=== PATIENT | male | born 1935 | race Caucasian/White ===

== ENCOUNTER 2016-12-31 00:04 | Emergency (ER) | payer MEDICARE, BC ==
--- NOTE | 2016-12-31 00:21 | EDM.PDOC ---
ED HISTORY OF PRESENT ILLNESS - General Chief Complaint: Respiratory Problem Stated Complaint: SOB/CONGESTION Time Seen by Provider: 12/31/16 00:20 Source of Information: Reports: Patient History Limitations: Reports: No limitations - History of Present Illness INITIAL COMMENTS - FREE TEXT/NARRATIVE: 81-year-old male presents the ED after waking from sleep after only being in bed for about an hour. He felt acutely short of breath particularly not able to breathe well through his nose and a sense of suffocation. He did use his albuterol puffer at home and felt a little improved. He lives 50 miles away and he was scared enough that he decided he would drive himself in as he lives alone. He did see his care provider couple of days ago. States he was recently treated with a Z-Jamie and did cough up a good deal of yellow sputum without blood. He has COPD/asthma. He's been never smoker but was around a lot of cigarette smoke over the years. No chest pain. Apparently he is on Coumadin because he has an area of his heart that is not pumping well. I could get from history whether or not he is in atrial fibrillation. We'll try looking to old notes. He denies fever or chills. Appetite has been good. No diarrhea or vomiting. [place]he has been wearing a mask when outside in the cool air making him feel very short of breath as of recent. Symptom Onset Date: 12/30/16 Symptom Onset Time: 23:15 Timing/Duration: Reports: Minutes:, Sudden onset (awoke from sleep after only being retired for about an hour acutely short of breath.) Severity: severe Location, General: Reports: chest (cannot get a full deep breath.) Quality: Reports: Ache, Other (felt he could not breathe at all through his nose.) Improves with: Reports: Medication (he is at his inhaler did help him breathe a little bit better.) Worsens with: Reports: Other (exposure to cool night air.), Movement Context, General: Reports: Other (awoke from sleep with current symptoms.). Denies: Activity, Exercise, Lifting, Sick contact, Trauma Associated Symptoms (General): Reports: cough w sputum (a week ago he coughed up a good deal of yelling sputum. Did finish a course of azithromycin.), shortness of breath. 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: Breathing treatments (albuterol metered-dose inhaler) - Related Data Allergies/ADRs: Allergies Allergy/AdvReac Type Severity Reaction Status Date / Time No Known Allergies Allergy Verified 12/31/16 00:18 Home Meds: Home Meds Albuterol [Proventil Neb Soln] 2.5 mg NEB Q4HRRT PRN #40 neb 12/31/16 [Rx] Albuterol [Proventil Neb Soln] 2.5 mg NEB Q4HRRT PRN #5 neb 12/31/16 [Rx] Fluticasone/Salmeterol [Advair Diskus 500-50] 1 inh INH DAILY 12/31/16 [History] Metoprolol Succinate [Toprol XL] 100 mg PO DAILY 12/31/16 [History] Past Medical History Cardiovascular History: Reports: Afib Respiratory History: Reports: Asthma, COPD Social & Family History - Tobacco Use Smoking Status *Q: Never Smoker (buttocks posterior good deal of cigarette smoke over his lifetime.) - Alcohol Use Alcohol Use History: No - Living Situation & Occupation Living situation: Reports: 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 Denies: fever, chills, malaise, decreased appetite, weight loss HEENT: Reports: Other (pain posterior to his right ear for the last week but its gone as of tonight. No rashes were appreciated. As a sharp stabbing pain is suggestive of a neurogenic source.) Respiratory: Reports: shortness of breath (usually just on exertion), wheezing, cough (occasional cough late last week when he was bringing up a little bit yellowish sputum.). Denies: pleuritic chest pain (on exertion or exposure to cool air.), hemoptysis Cardiovascular: Reports: Dyspnea on exertion (chronically). Denies: Chest pain , Blood pressure problem, Claudication, Edema, Lightheadedness, Orthopnea, Palpitations Endocrine: Reports: no symptoms GI/Abdominal: Reports: Constipation : Reports: frequency (nocturia usually 3 or 4 times nightly.), other Musculoskeletal: Reports: neck pain, shoulder pain, back pain Skin: Reports: no symptoms Neurological: Reports: no symptoms Psychiatric: Reports: Anxiety (admits he was quite anxious when he awoke from sleep with a feeling of suffocation and not able to get a good deep breath. This is never happened to him before.) Hematologic/Lymphatic: Reports: no symptoms Immunologic: Reports: no symptoms ED EXAM, GENERAL - Physical Exam Exam: See Below Exam Limited By: No limitations General Appearance: alert, WD/WN, anxious (mildly anxious.), mild distress Eye Exam: bilateral eye: normal inspection Ears: normal TMs Nose: other (this in bilateral middle and superior nasal turbinate swelling. There is a mild polyp on the right side. There is still plenty of room for air flow.) Throat/Mouth: Normal inspection, Normal lips, Normal oropharynx Head: atraumatic, normocephalic Neck: normal inspection, supple, non-tender, full range of motion. No: carotid bruit, lymphadenopathy (L), lymphadenopathy (R), thyromegaly Respiratory/Chest: no respiratory distress, lungs clear, normal breath sounds, no accessory muscle use, chest non-tender, other (O2 sats are 96-98% on.). No: rales, rhonchi, wheezing Cardiovascular: regular rate, rhythm (sinus bradycardia at 52 per minute), no JVD, no murmur, no rub, bradycardia. No: normal peripheral pulses Peripheral Pulses: 1+: posterior tibial (L), posterior tibial (R), dorsalis pedis (L), dorsalis pedis (R) GI/Abdominal: distended (his upper half of his abdomen is distended and tympanitic percussion compatible with aerophagia. No tenderness organomegaly appreciated.). No: no organomegaly, no distention, no abnormal bruit, no mass (Male) Exam: No hernia Back Exam: normal inspection, full range of motion. No: CVA tenderness (L), CVA tenderness (R) Extremities: normal inspection, normal range of motion, normal capillary refill , pedal edema (1+ pitting edema lower extremities.) Neurological: alert, oriented, CN II-XII intact, normal cognition, normal gait Psychiatric: normal affect, normal mood Skin Exam: Warm, Dry, Intact, Normal color, No rash EKG INTERPRETATION EKG Date: 01/07/17 Time: 00:45 Rhythm: other (sinus bradycardia at 50 per minute) Rate (beats/min): 50 [place]: normal P-wave: present QRS: other (decreased voltage in the limb leads) ST-T: normal QT: prolonged (mildly prolonged.) Course - Vital Signs Last Recorded V/S: Last Vital Signs Temp 35.8 C 12/31/16 00:14 Pulse 58 L 12/31/16 00:14 Resp 18 12/31/16 00:14 BP 144/83 H 12/31/16 00:14 Pulse Ox 96 12/31/16 00:14 - Orders/Labs/Meds Orders: Active Orders 24 hr Category Date Time Status EKG Documentation Completion [RC] STAT Care 12/31/16 00:34 Active Peripheral IV Care [RC] . DIRECTED Care 12/31/16 00:34 Active RT Aerosol Therapy [RC] ASDIRECTED Care 12/31/16 01:56 Active Chest 1V Frontal [CR] Stat Exams 12/31/16 00:33 Taken Sodium Chloride 0.9% [Saline Flush] Med 12/31/16 00:34 Active 10 ml FLUSH ASDIRECTED PRN Peripheral IV Insertion Adult [OM.PC] Stat Oth 12/31/16 00:34 Ordered Medication Orders Sodium Chloride (Saline Flush) 10 ml FLUSH ASDIRECTED PRN PRN Reason: Keep Vein Open Last Admin: 12/31/16 00:52 Dose: 10 ml Labs: Laboratory Tests 12/31/16 12/31/16 12/31/16 Range/Units 00:42 00:42 00:42 WBC 10.23 H (4.23-9.07) K/mm3 RBC 4.93 (4.63-6.08) M/mm3 Hgb 13.9 (13.7-17.5) gm/L Hct 41.0 (40.1-51.0) % MCV 83.2 (79.0-92.2) fl MCH 28.2 (25.7-32.2) pg MCHC 33.9 (32.2-35.5) g/dl RDW Std Deviation 39.8 (35.1-43.9) fL Plt Count 222 (163-337) K/mm3 MPV 9.3 L (9.4-12.3) fl Neutrophils % (Manual) 55 (40-60) % Band Neutrophils % 0 (0-10) % Lymphocytes % (Manual) 33 (20-40) % Atypical Lymphs % 0 % Monocytes % (Manual) 3 (2-10) % Eosinophils % (Manual) 7 (0.8-7.0) % Basophils % (Manual) 2 H (0.2-1.2) Platelet Estimate Adequate Plt Morphology Comment Normal RBC Morph Comment Normal PT 10.0 (8.0-13.0) SECONDS INR 0.92 D-Dimer, Quantitative (0.19-0.59) mg/L Sodium 140 (136-145) mEq/L Potassium 3.9 (3.5-5.1) mEq/L Chloride 108 H (98-107) mEq/L Carbon Dioxide 21 (21-32) mEq/L Anion Gap 14.9 (5-15) BUN 15 (7-18) mg/dL Creatinine 1.6 H (0.7-1.3) mg/dL Est Cr Clr Drug Dosing 40.92 mL/min Estimated GFR (MDRD) 42 (>60) mL/min BUN/Creatinine Ratio 9.4 L (14-18) Glucose 99 (83-115) mg/dL Calcium 8.2 L (8.5-10.1) mg/dL Magnesium 1.9 (1.8-2.4) mg/dl Total Bilirubin 0.4 (0.2-1.0) mg/dL AST 12 L (15-37) U/L ALT 15 L (16-63) U/L Alkaline Phosphatase 83 (46-116) U/L CK-MB (CK-2) 1.3 (0-3.6) ng/ml Troponin I < 0.017 (0.00-0.056) ng/mL B-Natriuretic Peptide (0-100) pg/mL Total Protein 6.1 L (6.4-8.2) g/dl Albumin 3.2 L (3.4-5.0) g/dl Globulin 2.9 gm/dL Albumin/Globulin Ratio 1.1 (1-2) 12/31/16 12/31/16 Range/Units 00:42 00:42 WBC (4.23-9.07) K/mm3 RBC (4.63-6.08) M/mm3 Hgb (13.7-17.5) gm/L Hct (40.1-51.0) % MCV (79.0-92.2) fl MCH (25.7-32.2) pg MCHC (32.2-35.5) g/dl RDW Std Deviation (35.1-43.9) fL Plt Count (163-337) K/mm3 MPV (9.4-12.3) fl Neutrophils % (Manual) (40-60) % Band Neutrophils % (0-10) % Lymphocytes % (Manual) (20-40) % Atypical Lymphs % % Monocytes % (Manual) (2-10) % Eosinophils % (Manual) (0.8-7.0) % Basophils % (Manual) (0.2-1.2) Platelet Estimate Plt Morphology Comment RBC Morph Comment PT (8.0-13.0) SECONDS INR D-Dimer, Quantitative 0.47 (0.19-0.59) mg/L Sodium (136-145) mEq/L Potassium (3.5-5.1) mEq/L Chloride (98-107) mEq/L Carbon Dioxide (21-32) mEq/L Anion Gap (5-15) BUN (7-18) mg/dL Creatinine (0.7-1.3) mg/dL Est Cr Clr Drug Dosing mL/min Estimated GFR (MDRD) (>60) mL/min BUN/Creatinine Ratio (14-18) Glucose (83-115) mg/dL Calcium (8.5-10.1) mg/dL Magnesium (1.8-2.4) mg/dl Total Bilirubin (0.2-1.0) mg/dL AST (15-37) U/L ALT (16-63) U/L Alkaline Phosphatase (46-116) U/L CK-MB (CK-2) (0-3.6) ng/ml Troponin I (0.00-0.056) ng/mL B-Natriuretic Peptide 122 H (0-100) pg/mL Total Protein (6.4-8.2) g/dl Albumin (3.4-5.0) g/dl Globulin gm/dL Albumin/Globulin Ratio (1-2) Meds: Medications Generic Name Dose Route Start Last Admin Trade Name Freq PRN Reason Stop Dose Admin Sodium Chloride 10 ml 12/31/16 00:34 12/31/16 00:52 Saline Flush FLUSH 10 ml ASDIRECTED PRN Administration Keep Vein Open Discontinued Medications Generic Name Dose Route Start Last Admin Trade Name Lelo PRN Reason Stop Dose Admin Albuterol/Ipratropium 3 ml 12/31/16 01:56 12/31/16 02:06 Duoneb 3.0-0.5 Mg/3 Ml NEB 12/31/16 01:57 3 ml ONETIME ONE Administration - Radiology Interpretation Free Text/Narrative:: 81-year-old male arrives in the ED after awakening from sleep with sudden onset of feeling of inability to get his breath particularly through his nose. He has a history of COPD/asthma and uses Advair discus twice daily and I believe albuterol metered-dose inhaler which he did take and seemed to relieve this. After this he felt somewhat cool and clammy and a bit shaky. He reports he has had a cough intermittently the last few weeks and did take a course of Zithromax that he had leftover from a previous visit. He did cough up quite a bit of yellow mucus and has felt better since that time. He is very sensitive to exposure to cool night air which will make him very short of breath and make him cough. Excision require his metered-dose inhaler much more frequently than normal. He states he felt fine when he went to bed. Denies any chest pain or feeling fatigued. No increased swelling of his legs lately. No changes in his medications. He reports he is on a blood thinner because part of his heart is working quite right I could not identify whether or not he is having intermittent atrial fibrillation. He is in sinus bradycardia on my examination and 50 per minute. Lungs are completely clear there is no evidence of increased jugular venous pulsations. His nose is patent and is not totally occluded. His abdomen is distended compatible with trouble breathing and some aerophagia evident. O2 sats at present are 96% on room air. Trace edema in his lower extremities. His ECG shows no sign of old myocardial infarction or acute ischemic changes.pPan routine labs to include BMP and CRP and cardiac markers. One view chest x-ray to be obtainedmy initial impression is that he became very apprehensive after waking suddenly from sleep short of breath. He did not use his metered-dose inhaler at home but sat in easy chair for a period of time and elected to come to the hospital which is a [address] Part of his apprehension is that he lives a far with her medical care in case something bad did happen. - Re-Assessments/Exams Free Text/Narrative Re-Assessment/Exam: 12/31/16 01:28 white count is 10.23 with 55% neutrophils and no bands. Hemoglobin is 13.9 hematocrit of 41.0 platelets 7 22,000. Coag showed PT of 10.0 and INR of 0.92 d-dimer 0.47 normal. Sodium 140 potassium 3.9 pending mildly elevated 1.6 EGFR is 42. Glucose 99 magnesium okay at 1.9. BNP was 122. Troponin is less than 0.017 and CK-MB fraction is 1.3 all within normal range. It appears this gentleman became acutely anxious after waking from sleep suddenly with a sense of shortness of breath similar to a panic attack. Not exactly sure as to the cause of this whether he became temporarily obstructed by his tongue during deep sleep etc. His chest x-ray is clear his labs are normal. 12/31/16 02:00:a discussion with the patient I feel he may well benefit from having a nebulizer machine at home where he can receive albuterol over a much more prolonged period of time when he gets into an acute attack of asthma. He reports the last few times we've been exposed to cold air out of the garage he barely made it back into the house to use his metered-dose inhaler the last few weeks. This of course is causing a certain degree of apprehension as well. Therefore I will have the respiratory therapy bring a nebulizer machine until all the appropriate paperwork for him. We will send 5 albuterol Nebules home from the [facility] case he needs them in the near future. I wrote a prescription for 440 further 2.5/3 male Nebules to be picked up when he comes to [facility] next time. I think this might provide him with a better sense of relief of asthma symptoms as he'll get the medication over a more prolonged period of time. He did receive a DuoNeb treatment while in the ED and therefore the mask and the toes that looks up to the nebulizer machine will be sent home with him. RT to teach him how to fill the nebulizer couplets after. He will follow with Christina Schneider if any further problems occur. Departure - Departure Time of Disposition: 02:11 Disposition: Home, Self-Care 01 Condition: fair Clinical Impression: Exacerbation of asthma Prescriptions: Albuterol [Proventil Neb Soln] 2.5 mg NEB Q4HRRT PRN #5 neb PRN Reason: asthma attack Albuterol [Proventil Neb Soln] 2.5 mg NEB Q4HRRT PRN #40 neb PRN Reason: asthma attack Referrals: Christina Schneider, CORPORATE SECURITIES RESEARCH ANALYST [Primary Care Provider] - Additional Instructions: evaluation in the emergency room tonight in regards to awakening from sleep with sudden onset of severe shortness of breath and inability to get a deep breath in. [place] very congested in her nose and unable to breathe through her nose or get a deep breath. 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 Examination the emergency room revealed her oxygen levels to be well within the normal range at 96-98%. Your lungs were clear on examination. The nose shows some evidence of congestion but enough room evidence for good airflow. It is therefore unclear what caused her to wake suddenly with an acute onset of shortness of breath. It is possible that mucous plug could of occurred in the upper airway that cause you to awakening short of breath or in the tongue fell back into the back of the throat and obstructed the airway is 80 to wake up with a sense of suffocation and inability to breathe. All of the investigations carried out through the emergency night turned out to be normal no evidence of heart related illness worse identified ECG normal chest x-ray was also found to be normal with no signs of infection. My suggestion would be to have an albuterol nebulizer machine that you can use at home if similar type event occurs and also if you develop similar acute onset of shortness of breath with wheezing and she explains coming out of the garage other day. It's easier to get the medication out of the nebulizer machine but it is a metered-dose inhaler. He would still need to carry her meter dose inhaler and were away from home to use an emergency indication get short of breath or asthma attack. We sent home 5 albuterol nebulizer in the emergency room tonight but a prescription was also written for 40 further Nebules that you can purchase the next time you're in town in your pharmacy. Your notes will be sent to your her normal care provider christina Schneider so that she knows what has transpired. - My Orders Last 24 Hours: My Active Orders 12/31/16 00:33 Chest 1V Frontal [CR] Stat 12/31/16 00:34 EKG Documentation Completion [RC] STAT Peripheral IV Care [RC] . DIRECTED Sodium Chloride 0.9% [Saline Flush] 10 ml FLUSH ASDIRECTED PRN Peripheral IV Insertion Adult [OM.PC] Stat 12/31/16 01:56 RT Aerosol Therapy [RC] ASDIRECTED - Assessment/Plan Last 24 Hours: My Active Orders 12/31/16 00:33 Chest 1V Frontal [CR] Stat 12/31/16 00:34 EKG Documentation Completion [RC] STAT Peripheral IV Care [RC] . DIRECTED Sodium Chloride 0.9% [Saline Flush] 10 ml FLUSH ASDIRECTED PRN Peripheral IV Insertion Adult [OM.PC] Stat 12/31/16 01:56 RT Aerosol Therapy [RC] ASDIRECTED
[2016-12-31] MEDS ORDERED: Sodium Chloride 0.9% 10 ML Syringe FLUSH PRN (00:34)
[2016-12-31] MEDS ORDERED: Albuterol/Ipratropium 3.0-0.5 MG/3 ML Neb Soln NEB ONE (01:56)
[2016-12-31] MEDS ORDERED: Albuterol 0.083% 2.5 MG/3 ML Neb Soln ONE (02:24)
[2016-12-31 02:40] VITALS: BP 132/74
--- NOTE | 2016-12-31 07:36 | CR ---
Chest: Portable view of the chest was obtained. Comparison: Previous chest x-ray of 08/03/16. Heart size is normal. Tortuous thoracic aorta is seen. Lungs are clear. Bony structures show degenerative spurring and joint space narrowing within both acromioclavicular joints. Degenerative endplate spurring also partially visualized within the spine. Impression: 1. Incidental findings. Nothing acute is identified on portable chest x-ray. Diagnostic code #2
== END 2016-12-31 02:30 | disposition home or self-care (01) ==
LOC: JD.ED 00:04
DX: J45.901 Unspecified asthma with (acute) exacerbation (principal); I48.91 Unspecified atrial fibrillation; J44.9 Chronic obstructive pulmonary disease, unspecified
CPT/HCPCS: 36415; 71010; 80053; 82553; 83735; 83880; 84484; 85025; 85379; 85610; 93005; 94664; 99285; J7050; 99284

== ENCOUNTER 2021-12-15 01:11 | Emergency (ER) | payer MEDICARE, BC ==
[2021-12-15 01:36] VITALS: BP 164/86; PULSE 111
== END 2021-12-15 02:41 | disposition home or self-care (01) ==
LOC: JD.ED 01:11
DX: R42 Dizziness and giddiness (principal); I48.91 Unspecified atrial fibrillation; I10 Essential (primary) hypertension; J44.9 Chronic obstructive pulmonary disease, unspecified; Z79.01 Long term (current) use of anticoagulants
CPT/HCPCS: 99283

== ENCOUNTER 2023-08-26 05:14 | Emergency (ER) | payer MEDICARE, BC ==
[2023-08-26] MEDS ORDERED: Meclizine 25 MG Tab PO ONE (05:45)
[2023-08-26 06:02] LABS: BASOPHILS ABSOLUTE AUTO 0.1 K/mm3 (0.0-0.2); BASOPHILS PERCENT AUTO 0.5 % (0.0-1.0); EOSINOPHILS ABSOLUTE AUTO 0.4 K/mm3 (0.0-0.4); EOSINOPHILS PERCENT AUTO 3.5 % (0.0-6.0); HEMATOCRIT 41.3 % (42.0-52.0); HEMOGLOBIN 14.1 gm/dl (14.0-18.0); IMMATURE GRAN ABSOLUTE AUTO 0.04 K/mm3 (0.00-0.05); IMMATURE GRAN PERCENT AUTO 0.3 % (0.0-0.4); LYMPHOCYTES ABSOLUTE AUTO 2.5 K/mm3 (1.0-4.8); LYMPHOCYTES PERCENT AUTO 21.1 % (24.0-44.0); MEAN CORPUSCULAR HEMOGLOBIN 29.7 pg (28.0-32.0); MEAN CORPUSCULAR HGB CONC 34.1 g/dl (32.0-36.0); MEAN CORPUSCULAR VOLUME 86.9 fl (83.0-99.0); MEAN PLATELET VOLUME 9.7 fl (9.4-12.4); MONOCYTES ABSOLUTE AUTO 0.7 K/mm3 (0.0-0.8); NEUTROPHILS ABSOLUTE AUTO 8.1 K/mm3 (1.8-7.7); NEUTROPHILS PERCENT AUTO 68.6 % (41.0-71.0); PLATELET COUNT,PLT 204 K/mm3 (150-400); RED BLOOD CELL COUNT 4.75 M/mm3 (4.52-5.90); WHITE BLOOD CELL COUNT,WBC 11.78 K/mm3 (3.9-11.3)
[2023-08-26 06:33] LABS: ALBUMIN 3.1 g/dl (3.4-5.0); ANION GAP 14.1 (5-15); CALCIUM 8.7 mg/dL (8.5-10.1); CREATININE 1.6 mg/dL (0.7-1.3); EST CRCL DRUG DOSING (CG) 35.7 mL/min; POTASSIUM,K 4.1 mEq/L (3.5-5.1); PROTEIN TOTAL,TP 6.2 g/dl (6.4-8.2)
[2023-08-26] MEDS ORDERED: LORazepam 0.5 MG Tab PO ONE (07:42)
[2023-08-26 11:52] VITALS: BP 118/74; PULSE 62
== END 2023-08-26 11:50 | disposition home or self-care (01) ==
LOC: JD.ED 05:14
DX: H81.10 Benign paroxysmal vertigo, unspecified ear (principal); I10 Essential (primary) hypertension; J44.9 Chronic obstructive pulmonary disease, unspecified; I48.91 Unspecified atrial fibrillation; Z79.01 Long term (current) use of anticoagulants; Z79.899 Other long term (current) drug therapy
CPT/HCPCS: 36415; 80053; 83735; 85025; 99284; A9270

== ENCOUNTER 2023-11-15 11:56 | Emergency (ER) | payer MEDICARE, BC ==
[2023-11-15] MEDS ORDERED: Meclizine 25 MG Tab PO ONE (12:57)
[2023-11-15 13:14] VITALS: BP 141/82; PULSE 52
== END 2023-11-15 13:08 | disposition home or self-care (01) ==
LOC: JD.ED 11:56
DX: R42 Dizziness and giddiness (principal); I10 Essential (primary) hypertension; I48.91 Unspecified atrial fibrillation; J44.9 Chronic obstructive pulmonary disease, unspecified; Z79.01 Long term (current) use of anticoagulants; Z79.899 Other long term (current) drug therapy
CPT/HCPCS: 99283; A9270

== ENCOUNTER 2024-08-23 13:44 | Emergency (ER) | payer MEDICARE, BC ==
[2024-08-23 14:26] LABS: BASOPHILS ABSOLUTE AUTO 0.1 K/mm3 (0.0-0.2); BASOPHILS PERCENT AUTO 0.5 % (0.0-1.0); EOSINOPHILS ABSOLUTE AUTO 0.5 K/mm3 (0.0-0.4); EOSINOPHILS PERCENT AUTO 5.6 % (0.0-6.0); HEMOGLOBIN 15.3 gm/dl (14.0-18.0); IMMATURE GRAN ABSOLUTE AUTO 0.02 K/mm3 (0.00-0.05); IMMATURE GRAN PERCENT AUTO 0.2 % (0.0-0.4); LYMPHOCYTES ABSOLUTE AUTO 1.9 K/mm3 (1.0-4.8); LYMPHOCYTES PERCENT AUTO 19.8 % (24.0-44.0); MEAN CORPUSCULAR HEMOGLOBIN 28.4 pg (28.0-32.0); MEAN CORPUSCULAR VOLUME 83.6 fl (83.0-99.0); MONOCYTES ABSOLUTE AUTO 0.8 K/mm3 (0.0-0.8); MONOCYTES PERCENT AUTO 7.9 % (0.0-8.0); NEUTROPHILS ABSOLUTE AUTO 6.4 K/mm3 (1.8-7.7); PLATELET COUNT,PLT 214 K/mm3 (150-400); RED BLOOD CELL COUNT 5.38 M/mm3 (4.52-5.90); WHITE BLOOD CELL COUNT,WBC 9.62 K/mm3 (3.9-11.3)
[2024-08-23] MEDS: Sodium Chloride 0.9% 1,000 ML IV SCH (14:50)
[2024-08-23 14:56] LABS: LACTIC ACID 1.1 mmol/L (0.4-2.0)
[2024-08-23 14:58] LABS: ALBUMIN 3.3 g/dl (3.4-5.0); BUN/CREATININE RATIO 8.2 (14-18); C-REACTIVE PROTEIN 0.68 mg/dL (<0.30); CALCIUM 8.8 mg/dL (8.5-10.1); CREATININE 1.7 mg/dL (0.7-1.3); EST CRCL DRUG DOSING (CG) 33.94 mL/min; MAGNESIUM 1.9 mg/dL (1.8-2.4); PROTEIN TOTAL,TP 6.7 g/dl (6.4-8.2); TSH 3.491 uIU/mL (0.358-3.74)
[2024-08-23] MEDS: Doxycycline Monohydrate 100 MG Cap PO ONE (16:46)
[2024-08-23 16:47] VITALS: BP 132/87; PULSE 94
[2024-08-23] MEDS: Metoprolol Succinate 50 MG Tab.ER PO ONE (16:47)
== END 2024-08-23 16:55 | disposition home or self-care (01) ==
LOC: JD.ED 13:44
DX: H70.93 Unspecified mastoiditis, bilateral (principal); B02.9 Zoster without complications; I48.91 Unspecified atrial fibrillation; H81.10 Benign paroxysmal vertigo, unspecified ear; I10 Essential (primary) hypertension; J44.9 Chronic obstructive pulmonary disease, unspecified; Z79.51 Long term (current) use of inhaled steroids; Z79.01 Long term (current) use of anticoagulants; Z79.899 Other long term (current) drug therapy
CPT/HCPCS: 36415; 70450; 80053; 83605; 83735; 83880; 84443; 84484; 85025; 86140; 93005; 96360; 96361; 99285; A9270; J7030; 93010; 99284

== ENCOUNTER 2024-09-20 01:04 | Emergency (ER) | payer MEDICARE, BC ==
[2024-09-20] MEDS ORDERED: Sodium Chloride 0.9% 10 ML Syringe FLUSH PRN (01:17)
[2024-09-20] MEDS: Albuterol/Ipratropium 3.0-0.5 MG/3 ML Neb Soln NEB ONE (01:29)
[2024-09-20 01:36] LABS: BASOPHILS ABSOLUTE AUTO 0.1 K/mm3 (0.0-0.2); BASOPHILS PERCENT AUTO 0.5 % (0.0-1.0); EOSINOPHILS ABSOLUTE AUTO 0.6 K/mm3 (0.0-0.4); EOSINOPHILS PERCENT AUTO 5.8 % (0.0-6.0); HEMATOCRIT 39.8 % (42.0-52.0); HEMOGLOBIN 13.6 gm/dl (14.0-18.0); IMMATURE GRAN ABSOLUTE AUTO 0.04 K/mm3 (0.00-0.05); IMMATURE GRAN PERCENT AUTO 0.4 % (0.0-0.4); LYMPHOCYTES ABSOLUTE AUTO 2.8 K/mm3 (1.0-4.8); LYMPHOCYTES PERCENT AUTO 25.4 % (24.0-44.0); MEAN CORPUSCULAR HEMOGLOBIN 29.5 pg (28.0-32.0); MEAN CORPUSCULAR HGB CONC 34.2 g/dl (32.0-36.0); MEAN CORPUSCULAR VOLUME 86.3 fl (83.0-99.0); MEAN PLATELET VOLUME 9.6 fl (9.4-12.4); MONOCYTES ABSOLUTE AUTO 0.8 K/mm3 (0.0-0.8); MONOCYTES PERCENT AUTO 7.1 % (0.0-8.0); NEUTROPHILS ABSOLUTE AUTO 6.7 K/mm3 (1.8-7.7); NEUTROPHILS PERCENT AUTO 60.8 % (41.0-71.0); PLATELET COUNT,PLT 244 K/mm3 (150-400); RED BLOOD CELL COUNT 4.61 M/mm3 (4.52-5.90); WHITE BLOOD CELL COUNT,WBC 10.97 K/mm3 (3.9-11.3)
[2024-09-20] MEDS: methylPREDNISolone Sodium Succinate 125 MG/2 ML SDV IVPUSH ONE (01:44)
[2024-09-20 02:04] LABS: A/G RATIO 0.8 (1-2); ALBUMIN 2.8 g/dl (3.4-5.0); BILIRUBIN TOTAL 0.6 mg/dL (0.2-1.0); BUN/CREATININE RATIO 7.8 (14-18); CALCIUM 8.6 mg/dL (8.5-10.1); CREATININE 1.8 mg/dL (0.7-1.3); EST CRCL DRUG DOSING (CG) 32.06 mL/min; PROTEIN TOTAL,TP 6.2 g/dl (6.4-8.2)
[2024-09-20 03:28] VITALS: BP 128/73; PULSE 97
== END 2024-09-20 03:24 | disposition home or self-care (01) ==
LOC: JD.ED 01:04
DX: J06.9 Acute upper respiratory infection, unspecified (principal); I10 Essential (primary) hypertension; J44.9 Chronic obstructive pulmonary disease, unspecified; I48.91 Unspecified atrial fibrillation; Z79.01 Long term (current) use of anticoagulants; Z79.899 Other long term (current) drug therapy
CPT/HCPCS: 36415; 71045; 80053; 83880; 84484; 85025; 87428; 93005; 94640; 96374; 99285; J2919; J7620-GY